=== PATIENT | male | born 1970 | race Hispanic/Latino ===

== ENCOUNTER 2019-08-08 10:43 | Emergency (ER) | payer OTHER ==
[~2019-08-08] VITALS: Ht 177.8 cm; Wt 92.1 kg
--- NOTE | 2019-08-08 11:52 | Diagnostic Imaging Report ---
EXAMINATION: CXR 1 VEW - HOPD INDICATION: Chest pain COMPARISON: None FINDINGS: LINES/TUBES:None LUNGS:The lungs are well-inflated. No focal consolidation or pulmonary edema. PLEURA:No pleural effusion or pneumothorax. MEDIASTINUM:The cardiomediastinal silhouette appears normal in size and shape. BONES/SOFT TISSUES:No acute osseous injury. ABDOMEN:No free air under the diaphragm. IMPRESSION: No focal pneumonia or pulmonary edema. Signed by: Enedelia Lujan MD on 08/08/2019 11:49 AM
[2019-08-08] MEDS ORDERED: CLONIDINE HCL 0.2 MG TAB PO ONE (12:30)
[2019-08-08] MEDS ORDERED: CLONIDINE HCL 0.1 MG TAB PO ONE (12:45)
[2019-08-08] MEDS ORDERED: CLONIDINE HCL 0.1 MG TAB ONE (12:49)
[2019-08-08 13:12] VITALS: BP 150/99
--- NOTE | 2019-08-08 13:30 | NUR ---
PT STATES HE FEELS MUCH BETTER.
== END 2019-08-08 13:30 | disposition home or self-care (01) ==
LOC: FSED 10:43
DX: R00.2 Palpitations (principal); F41.1 Generalized anxiety disorder
CPT/HCPCS: 71045; 80053; 82553; 84484; 85025; 93005; 99284

== ENCOUNTER 2021-10-15 22:01 | Emergency (ER) | payer BC, OTHER ==
[~2021-10-15] VITALS: Ht 177.8 cm; Wt 95.3 kg
[2021-10-15] MEDS ORDERED: TETANUS/DIPHTHERIA TOX ADULT 0.5 ML SYR ONE (22:56)
[2021-10-15] MEDS ORDERED: TETANUS/DIPHTHERIA TOX ADULT 0.5 ML SYR IM ONE (23:00)
== END 2021-10-15 22:55 | disposition home or self-care (01) ==
LOC: ER 22:43
DX: S61.301A Unspecified open wound of left index finger with damage to nail, initial encounter (principal); W26.0XXA Contact with knife, initial encounter; Y92.89 Other specified places as the place of occurrence of the external cause
CPT/HCPCS: 90471; 90714; 99283